=== PATIENT | male | born 1985 | race Caucasian/White ===

== ENCOUNTER 2018-07-12 19:39 | Emergency (ER) | payer OTHER ==
--- NOTE | 2018-07-12 19:58 | PDOC ---
Rapid Medical Evaluation Time Seen by Provider: 07/12/18 19:55 Medical Evaluation: Allergies Allergy/AdvReac Type Severity Reaction Status Date / Time No Known Drug Allergies Allergy Verified 08/03/15 08:02 07/12/18 19:55 I have performed a brief in-person evaluation of this patient. The patient presents with a chief complaint of: elevated BP with L facial tingling, h/o HTN (was on meds before, norvasc 5mg) Pertinent physical exam findings:none I have ordered the following: basic labs The patient will proceed to the ED for further evaluation. 07/12/18 19:57 Discharge Disposition - Diagnosis Elevated blood pressure reading in office with diagnosis of hypertension - Referrals Referrals: Michoacano Smalls MD [Primary Care Provider] - - Patient Instructions - Post Discharge Activity
[2018-07-12 19:59] VITALS: BMI 29.0
[2018-07-12] MEDS ORDERED: SODIUM CHLORIDE 1,000 ML IV STA (20:43)
[2018-07-12] MEDS ORDERED: METOCLOPRAMIDE HCL INJECTION 10 MG/2 ML VIAL IVPUSH ONE (20:43)
--- NOTE | 2018-07-12 20:43 | PDOC ---
History of Present Illness - General Chief Complaint: Blood Pressure Problem Stated Complaint: HIGH BLOOD PRESSURE Time Seen by Provider: 07/12/18 19:55 History Source: Patient Exam Limitations: No Limitations - History of Present Illness Initial Comments: 07/12/18 20:40 32 year old male with PMH headaches presenting to ED for left facial tingling and headache. He states the facial tingling occurred yesterday, denies current symptoms. He states his headache is located at the top of his head, feels similar to prior, was slow in onset and progression. He states he gets headaches because of his sensitivity to sound. He states he gets headaches around once a week. He denies visual changes, numbness, weakness, gait changes, disequilibrium, dizziness, chest pain, shortness of breath, cough, nausea, vomiting, diarrhea, abdominal pain, leg swelling, palpitations. PCP - Dr. Callahan Allergies - NKDA Past History - Past Medical History Allergies/Adverse Reactions: Allergies Allergy/AdvReac Type Severity Reaction Status Date / Time No Known Drug Allergies Allergy Verified 07/12/18 19:59 Home Medications: Ambulatory Orders NK [No Known Home Medication] 08/03/15 Anemia: No Asthma: Yes (CHILD) Cancer: No Cardiac Disorders: No CVA: No COPD: No CHF: No Dementia: No Diabetes: No GI Disorders: No Disorders: No HTN: Yes Hypercholesterolemia: No Liver Disease: No Seizures: No Thyroid Disease: No - Surgical History Abdominal Surgery: Yes Appendectomy: Yes Cardiac Surgery: No Cholecystectomy: No Lung Surgery: No Neurologic Surgery: No Orthopedic Surgery: No - Family Disease History Family Disease History: Heart Disease: Father - Suicide/Smoking/Psychosocial Hx Smoking History: Never smoked Have you smoked in the past 12 months: No Information on smoking cessation initiated: No Hx Alcohol Use: No Drug/Substance Use Hx: No Substance Use Type: None Hx Substance Use Treatment: No Review of Systems - Review of Systems Able to Perform ROS?: Yes Comments:: 07/12/18 20:42 General: denies fever, chills, night sweats, generalized weakness. HEENT: denies sore throat, rhinorrhea, ear pain. Heart: denies chest pain, palpitations, syncope, lower extremity swelling, diaphoresis. Respiratory: denies shortness of breath, cough, sputum production, hematemesis. Abdomen: denies abdominal pain, nausea, vomiting, diarrhea, constipation, blood in stool. : denies dysuria, increased urinary frequency, hematuria, urinary incontinence , flank pain. Back: denies back pain, flank pain. Musculoskeletal: denies joint pain, muscle pain, joint swelling. Neurological: admits to headache and tingling. denies dizziness, numbness, weakness. Skin: denies rash, laceration, abrasion. *Physical Exam - Vital Signs Last Vital Signs Temp Pulse Resp BP Pulse Ox 98.3 F 90 18 162/106 100 07/12/18 19:56 07/12/18 19:56 07/12/18 19:56 07/12/18 19:56 07/12/18 19:56 - Physical Exam Comments: 07/12/18 20:42 Appearance: comfortable. HEENT: head is normocephalic, atraumatic. EOMI. PERRLA. Bilateral auditory canals clear, cut hair seen in right ear canal. Bilateral TM normal. nasal mucosa moist and pink. Posterior pharynx pink, no tonsilar enlargement, no tonsilar exudates. Moist oral mucosa. Neck: supple. Full ROM. Heart: regular rhythm. no murmurs, rubs or gallops. No pericardial friction rub. Lungs: clear to auscultation bilaterally. no crackles, rhonchi or wheezing. no stridor. Abdomen: soft, nontender. normal bowel sounds. no rebound, guarding, masses. Back: no CVA tenderness. Extremities: Peripheral pulses intact and equal. No lower extremity edema. Neurological: Alert. Oriented x3. CN2-12 intact. 5/5 strength all extremities. Full sensation all extremities and bilateral face. Romberg negative. Finger to nose normal. Gait normal. ED Treatment Course - LABORATORY CBC & Chemistry Diagram: 07/12/18 21:04 07/12/18 21:04 Medical Decision Making - Medical Decision Making 07/12/18 21:13 32 year old male with PMH headaches c/o headache and facial tingling (left). Pt denies current facial tingling. Completely neurologically intact. Initial Vital Signs Temp Pulse Resp BP Pulse Ox 98.3 F 90 18 162/106 100 07/12/18 19:56 07/12/18 19:56 07/12/18 19:56 07/12/18 19:56 07/12/18 19:56 Afebrile. No tachycardia. Hypertensive. Pending labs. Reglan and IV fluids ordered. Will reassess. 07/12/18 21:18 WBC 10.4 Chemistry normal. Elevation of AST 602. Elevation of ALT 237. HIV testing negative. 07/12/18 22:13 I discussed the results with the patient, and suggested a RUQ US. He refused RUQ US. He states he is pain free, and states he would like to go home and follow up with his PCP out patient. Pt will be discharged with copy of labs, referral for GI and neuro, as well as strict return precautions. *DC/Admit/Observation/Transfer Diagnosis at time of Disposition: Elevated blood pressure reading in office with diagnosis of hypertension - Referrals Referrals: Michoacano Smalls MD [Primary Care Provider] - Kayden Oliver MD [Staff Physician] - Adrianna Lyles MD [Staff Physician] - - Patient Instructions Additional Instructions: You were seen today for elevated blood pressure. Your blood work revealed elevated liver enzymes. You need to see your primary care doctor and a polysomnographic technician to follow up on this and seek further testing. Your electrolytes were normal. Your HIV test was negative. You were given intravenous Reglan and fluids. Follow up with your primary care doctor within 7 days. Call their office Sunday and make an appointment for next week. Bring the paperwork given to you today with you to your appointment. I have provided you with a referral for a neurologist. Follow up with your neurologist within 7 days. Call their office Sunday and make an appointment for next week. Bring the paperwork given to you today with you to your appointment. I have provided you with a referral for a polysomnographic technician Follow up with your neurologist within 7 days. Call their office Sunday and make an appointment for next week. Bring the paperwork given to you today with you to your appointment. Please return to the Emergency Department for weakness, numbness, tingling, visual changes, facial drooping, problems speaking, fever, chills, nausea, vomiting, increasing pain, or any new, worsening or concerning symptoms. Your care is not complete until you follow up with your primary care doctor, neurologist and polysomnographic technician. - Post Discharge Activity
[2018-07-12] MEDS ORDERED: METOCLOPRAMIDE HCL INJECTION 10 MG/2 ML VIAL ONE (20:59)
[2018-07-12 21:14] LABS: HEMATOCRIT 43.7 % (35.4-49); MCH 29.2 pg (25.7-33.7); MCHC 34.2 g/dl (32.0-35.9); MEAN CELL VOLUME 85.2 fl (80-96); PLATELET COUNT 192 K/MM3 (134-434); RBC 5.13 M/mm3 (4.00-5.60); RDW 12.9 % (11.9-15.9); WHITE BLOOD COUNT 10.4 K/mm3 (4.0-10.0)
[2018-07-12 21:33] LABS: ALBUMIN 3.8 g/dl (3.4-5.0); ALK PHOS 83 U/L (45-117); ANION GAP 10 MMOL/L (8-16); BILIRUBIN,TOTAL 0.8 mg/dL (0.2-1.0); BLOOD UREA NITROGEN 12 mg/dL (7-18); CALCIUM 8.7 mg/dL (8.5-10.1); CHLORIDE 106 mmol/L (98-107); CO2 25 mmol/L (21-32); CREATININE 1.1 mg/dL (0.7-1.3); GLUCOSE,RANDOM 80 mg/dL (74-106); POTASSIUM 3.5 mmol/L (3.5-5.1); SGPT/ALT 237 U/L (12-78); SODIUM 141 mmol/L (136-145); TOT PROT 7.4 g/dl (6.4-8.2)
--- NOTE | 2018-07-12 21:43 | PDOC ---
Attending Attestation - HPI HPI: 07/12/18 21:48 The patient is a 32 year old male with a significant past medical history of migraines who presents to the ER with left facial tingling and headache yesterday. Patient states he usually has similar headaches approximately once a week. Patient reports his headaches are exacerbated with sound. Patient denies any complaints today. The patient denies vision changes, difficulty walking, chest pain, shortness of breath, and dizziness. Denies fever, chills, nausea, vomit, diarrhea, and constipation. Denies dysuria, frequency, urgency, and hematuria. Allergies: NKA Past surgical history: None reported. Social history: No reported alcohol, drug, or cigarette use. PCP: Dr. Callahan <Marsha Nicholson - Last Filed: 07/12/18 21:48> - Resident Resident Name: Irina Kessler - ED Attending Attestation I have performed the following: I have examined & evaluated the patient, The case was reviewed & discussed with the resident, I agree w/resident's findings & plan, Exceptions are as noted - Physicial Exam PE: 07/16/18 11:39 awake alert lungs clear bilaterally heart rrr no mrg. abd soft nt nd. skin warm and dry. neuro 5/5 all four ext. cn II - XII intact. gait and speech normal. - Medical Decision Making 07/12/18 22:19 32 yo male with h/o htn , here with c/o headache. has frequen migraines weekly. slow gradual onset headache. no trama no f/c no n/v no change to vision. normal exam plan treat migrain reglan fluids labs. r/o electrolyte abnormality or anemia as cause of meng. will refer to nuerology. pt feels better, requ dc home. lft noted to be elevated, offered ultrasound. pt does not want to stay will followup. given referral to gi and nuerology. <Dannielle Wade - Last Filed: 07/16/18 11:40>
[2018-07-12 21:46] LABS: SGOT/AST 602 U/L (15-37)
[2018-07-12 22:28] VITALS: BP 154/102; PULSE 78; TEMP 97.8
== END 2018-07-12 22:20 | disposition home or self-care (01) ==
LOC: JER 19:39
PROC: 3E033GC Introduction of Other Therapeutic Substance into Peripheral Vein, Percutaneous Approach (ICD-10-PCS; principal; 2018-07-12)
DX: I10 Essential (primary) hypertension (principal)
CPT/HCPCS: 36415; 80053; 85027; 87389; 99283-25; J7030

== ENCOUNTER 2022-05-23 21:20 | Emergency (ER) | payer OTHER ==
[2022-05-23 21:37] VITALS: BP 144/91; PULSE 79; TEMP 98.6; BMI 29.2
[2022-05-23] MEDS ORDERED: DEXAMETHASONE SOD PHOSPHATE 10 MG/1 ML VIAL IM ONE (23:13)
[2022-05-23] MEDS ORDERED: DEXAMETHASONE SOD PHOSPHATE 10 MG/1 ML VIAL ONE (23:18)
== END 2022-05-24 00:52 | disposition home or self-care (01) ==
LOC: JERFT 21:20
PROC: 3E023GC Introduction of Other Therapeutic Substance into Muscle, Percutaneous Approach (ICD-10-PCS; principal; 2022-05-23)
DX: T78.40XA Allergy, unspecified, initial encounter (principal)
CPT/HCPCS: 99284-25; J1100